=== PATIENT | female | born 1960 | race Caucasian/White ===

== ENCOUNTER 2018-02-16 06:48 | Day surgery (SDC) | payer BC ==
[2018-02-16] MEDS ORDERED: Sodium Chloride 0.9% 10 ML Syringe FLUSH PRN (07:00)
[2018-02-16] MEDS ORDERED: Lidocaine 1%/Sod Bicarbonate in NS 8.4% 1 ML Syringe IDERM PRN (07:00)
[2018-02-16] MEDS ORDERED: Lactated Ringers 1,000 ML IV SCH (07:00)
[2018-02-16] MEDS ORDERED: Lidocaine 1% 0 ML ONE (07:24)
[2018-02-16] MEDS ORDERED: Propofol 200 MG/20 ML SDV ONE (07:25)
[2018-02-16] MEDS ORDERED: fentaNYL 100 MCG/2 ML SDV ONE (07:25)
--- NOTE | 2018-02-16 07:36 | PCM.PREANE ---
Preanesthetic Assessment - Anesthesia/Transfusion/Family Hx Anesthesia History: Prior Anesthesia Without Reaction Family History of Anesthesia Reaction: No Transfusion History: No Prior Transfusion(s) Intubation History: Unknown - Review of Systems General: No Symptoms Pulmonary: No Symptoms (February bronchitis that has resolved.) Cardiovascular: No Symptoms Gastrointestinal: No Symptoms (GERD), Difficulty Swallowing Neurological: No Symptoms (history of arthritis of the neck) Other: Reports: Easy Bruising, Thyroid Problems (Patient takes thyroid supplement/ hypothroid.), Neck Pain - Physical Assessment NPO Status Date: 02/15/18 NPO Status Time: 19:00 Pulse: 56 O2 Sat by Pulse Oximetry: 97 Respiratory Rate: 17 Blood Pressure: 114/67 Temperature: 37.1 C Height: 1.55 m Weight: 62 kg ASA Class: 1 Mental Status: Alert & Oriented x3 Airway Class: Mallampati = 2 Dentition: Reports: Normal Dentition, Caries Thyro-Mental Finger Breadths: 3 Mouth Opening Finger Breadths: 3 ROM/Head Extension: Full Lungs: Clear to Auscultation, Normal Respiratory Effort Cardiovascular: Regular Rate, Regular Rhythm, No Murmurs - Lab Values: Labs reviewed and noted and within acceptable ranges to proceed with scheduled procedure. - Allergies Allergies/Adverse Reactions: Allergies Allergy/AdvReac Type Severity Reaction Status Date / Time Penicillins Allergy Pain Verified 02/16/18 07:36 - Anesthesia Plan Pre-Op Medication Ordered: None - Acknowledgements Anesthesia Type Planned: MAC Pt an Appropriate Candidate for the Planned Anesthesia: Yes Alternatives and Risks of Anesthesia Discussed w Pt/Guardian: Yes Pt/Guardian Understands and Agrees with Anesthesia Plan: Yes PreAnesthesia Questionnaire HEENT History: Reports: Impaired Vision, Sinusitis, Other (See Below) Other HEENT History: pharyngitis, wears glasses Cardiovascular History: Reports: None Respiratory History: Reports: Bronchitis, Recurrent Genitourinary History: Reports: None [employer] History: Reports: Musculoskeletal History: Reports: Arthritis Neurological History: Reports: None Psychiatric History: Reports: None Endocrine/Metabolic History: Reports: None Hematologic History: Reports: None Immunologic History: Reports: None Oncologic (Cancer) History: Reports: None Dermatologic History: Reports: Other (See Below) Other Dermatologic History: cold sores - Past Surgical History Head Surgeries/Procedures: Reports: None HEENT Surgical History: Reports: None, Tonsillectomy Cardiovascular Surgical History: Reports: None Respiratory Surgical History: Reports: None GI Surgical History: Reports: Appendectomy, Colonoscopy Female Surgical History: Reports: Cervical Cryotherapy, D&C Male Surgical History: Reports: None Endocrine Surgical History: Reports: None Neurological Surgical History: Reports: None Musculoskeletal Surgical History: Reports: Other (See Below) Other Musculoskeletal Surgeries/Procedures:: right foot surgery - SUBSTANCE USE Smoking Status *Q: Never Smoker Recreational Drug Use History: No - HOME MEDS Home Medications: Home Meds Albuterol [Ventolin HFA] 2 puff INH Q6H PRN 02/15/18 [History] Multivitamin [Multi-Day Vitamins] 1 tab PO DAILY 02/15/18 [History] Thyroid,Pork [Nature-Throid] 65 mg PO DAILY 02/15/18 [History] valACYclovir HCl [valACYclovir] 1 gm PO BID PRN 02/15/18 [History] - CURRENT (IN HOUSE) MEDS Current Meds: Current Medications Lactated Ringer's (Ringers, Lactated) 1,000 mls @ 125 mls/hr IV ASDIRECTED JACQUELYN Stop: 02/16/18 23:00 Lidocaine/Sodium Bicarbonate (Buffered Lidocaine 1% In Ns 8.4%) 0.25 ml IDERM ONETIME PRN PRN Reason: Prior to IV Start Stop: 02/16/18 18:00 Sodium Chloride (Saline Flush) 10 ml FLUSH ASDIRECTED PRN PRN Reason: Keep Vein Open Stop: 02/16/18 18:00 Discontinued Medications Fentanyl (Sublimaze) Confirm Administered Dose 100 mcg .ROUTE .STK-MED ONE Stop: 02/16/18 07:26 Lidocaine HCl (Xylocaine-Mpf 1%) Confirm Administered Dose 4 mls @ as directed .ROUTE .STK-MED ONE Stop: 02/16/18 07:25 Propofol (Diprivan 20 Ml) Confirm Administered Dose 200 mg .ROUTE .STK-MED ONE Stop: 02/16/18 07:26
--- NOTE | 2018-02-16 08:24 | PCM.OPNOTE ---
- General Post-Op/Procedure Note Date of Surgery/Procedure: 02/16/18 Operative Procedure(s): Esophagogastroduodenoscopy with proximal and distal esophageal biopsies with cold forceps Findings: Endoscopically normal esophagogastroduodenoscopy, with no strictures rings mass lesions scarring or webs seen throughout the exam. Pre Op Diagnosis: Dysphagia Post-Op Diagnosis: Structurally normal exam Anesthesia Technique: MAC, Moderate Sedation Primary Surgeon: Lux Durán Pathology: Proximal and distal esophageal biopsies EBL in mLs: 0 Complications: None Condition: Good Free Text/Narrative:: After adequate IV sedation and analgesia was obtained with monitoring the patient was placed in the left lateral decubitus position for the procedure. Through a bite-block lubricated upper endoscope was inserted into the esophagus through what might have been a slightly spastic upper esophageal sphincter and advanced under direct vision to the stomach. Additional air was given here. The antrum was identified followed by introduction of the scope through the pylorus to the second part of the duodenum. The second and first parts were endoscopically normal with no mass lesions or inflammatory changes seen. The antrum was endoscopically normal as well. The retroflexed view revealed no hiatal hernia. The fundic and cardiac regions were endoscopically normal. The body of the stomach was grossly normal with normal rugal folds and no inflammatory changes. I withdrew the scope to the GE junction which was sharp and had no pathology. There were no strictures or rings or mass lesions. Random biopsy was taken for histologic review. The body of the esophagus is grossly normal. A random biopsy was taken the proximal third for histologic evaluation. Photographs taken for the patient for the medical record.
--- NOTE | 2018-02-16 08:27 | PCM48HPAN ---
Post Anesthesia Note - EVALUATION WITHIN 48HRS OF ANESTHETIC Vital Signs in Normal Range: Yes Patient Participated in Evaluation: Yes Respiratory Function Stable: Yes Airway Patent: Yes Cardiovascular Function Stable: Yes Hydration Status Stable: Yes Pain Control Satisfactory: Yes Nausea and Vomiting Control Satisfactory: Yes Mental Status Recovered: Yes
== END 2018-02-16 08:49 | disposition home or self-care (01) ==
LOC: JD.SDS 06:48
PROVIDERS: ATTEND Surgery
DX: R13.10 Dysphagia, unspecified (principal); K21.9 Gastro-esophageal reflux disease without esophagitis; Z88.0 Allergy status to penicillin; Z79.899 Other long term (current) drug therapy
CPT/HCPCS: 43239; J3010; J7120; 00731; J2704

== ENCOUNTER 2023-12-09 08:42 | Day surgery (SDC) | payer BC ==
[~2023-12-09 08:42] MED LIST: Lactated Ringers 1,000 ML IV SCH; Sodium Chloride 0.9% 10 ML Syringe FLUSH PRN; Sodium Chloride 0.9% 10 ML Syringe FLUSH SCH
[2023-12-09] MEDS ORDERED: Lactated Ringers 1,000 ML IV SCH (09:30)
[2023-12-09] MEDS ORDERED: Propofol 200 MG/20 ML SDV ONE (09:49)
[2023-12-09] MEDS ORDERED: Lidocaine 1% 4 ML ONE (09:49)
== END 2023-12-09 12:00 | disposition home or self-care (01) ==
LOC: JD.SDS 08:42
PROVIDERS: ATTEND Specialist
DX: Z12.11 Encounter for screening for malignant neoplasm of colon (principal); K57.30 Diverticulosis of large intestine without perforation or abscess without bleeding; Z79.899 Other long term (current) drug therapy; Z98.890 Other specified postprocedural states; Z90.49 Acquired absence of other specified parts of digestive tract; Z88.0 Allergy status to penicillin
CPT/HCPCS: 45378; J2704; J7120; J3490